=== PATIENT | male | born 1975 | race Caucasian/White ===

== ENCOUNTER 2018-11-25 00:09 | Emergency (ER) | payer OTHER ==
[2018-11-25 00:16] VITALS: TEMP 98.2
--- NOTE | 2018-11-25 00:33 | ED ---
Chest Pain HPI - General Chief Complaint: Chest Pain Stated Complaint: Chest Pain Time Seen by Provider: 11/25/18 00:18 Source: patient Mode of arrival: wheelchair Limitations: no limitations - History of Present Illness MD Complaint: chest pain -: hour(s) Onset: during rest Pain Location: right chest Pain Radiation: back Severity: severe Quality: sharp Consistency: constant Improves With: nothing Worsens With: inspiration Treatments Prior to Arrival: none - Related Data Previous Rx's Medication Instructions Recorded Ibuprofen 800 mg PO TID #20 tablet 11/25/18 Allergies Allergy/AdvReac Type Severity Reaction Status Date / Time No Known Allergies Allergy Verified 11/25/18 00:13 Review of Systems ROS Statement: Those systems with pertinent positive or pertinent negative responses have been documented in the HPI. ROS Other: All systems not noted in ROS Statement are negative. Constitutional: Denies: fever, chills Respiratory: Denies: cough, dyspnea Cardiovascular: Reports: chest pain. Denies: palpitations, orthopnea, edema, syncope Gastrointestinal: Denies: abdominal pain, vomiting, diarrhea Genitourinary: Denies: dysuria, hematuria Musculoskeletal: Denies: back pain Skin: Denies: rash Neurological: Denies: headache EKG Findings - EKG Results: EKG: interpreted by ERMD, sinus rhythm (Rate 63 bpm), normal axis, normal QRS, normal ST/T - Blocks, Krypton, Hypertrophy, ST Abn: Chamber hypertrophy or enlargement: only voltage criteria for left ventricular hypertrophy Past Medical History Past Medical History: No Reported History History of Any Multi-Drug Resistant Organisms: None Reported Past Surgical History: Hernia Repair Past Psychological History: No Psychological Hx Reported Smoking Status: Current every day smoker Past Alcohol Use History: None Reported Past Drug Use History: Heroin General Exam Limitations: no limitations General appearance: alert, in no apparent distress Head exam: Present: atraumatic, normocephalic Eye exam: Present: normal appearance. Absent: scleral icterus, conjunctival injection ENT exam: Present: normal oropharynx Respiratory exam: Present: normal lung sounds bilaterally. Absent: respiratory distress, wheezes, rales, rhonchi, stridor Cardiovascular Exam: Present: regular rate, normal rhythm, normal heart sounds. Absent: systolic murmur, diastolic murmur, rubs, gallop GI/Abdominal exam: Present: soft. Absent: distended, tenderness, guarding, rebound, rigid, mass Extremities exam: Present: normal inspection, normal capillary refill. Absent: pedal edema, calf tenderness Back exam: Present: normal inspection. Absent: CVA tenderness (R), CVA tenderness (L) Neurological exam: Present: alert Skin exam: Present: warm, dry, intact, normal color. Absent: rash Course Vital Signs 11/25/18 00:13 Temperature 98.2 F Pulse Rate 66 Respiratory 18 Rate Blood Pressure 143/83 O2 Sat by Pulse 100 Oximetry Disposition Clinical Impression: Pleuritis Disposition: HOME SELF-CARE Condition: Good Instructions (If sedation given, give patient instructions): Pleurisy (ED) Prescriptions: Ibuprofen 800 mg PO TID #20 tablet Is patient prescribed a controlled substance at d/c from ED?: No Referrals: Mick Sow DO [Primary Care Provider] - 1-2 days
[2018-11-25] MEDS ORDERED: KETOROLAC 30 MG/ML 1 ML VIAL IVP STA (00:38)
[2018-11-25 01:09] LABS: Basophils # (A) 0.1 k/uL (0-0.2); Basophils % (A) 1 %; Eosinophils # (A) 0.2 k/uL (0-0.7); Eosinophils % (A) 2 %; HCT 44.2 % (39.0-53.0); HGB 14.5 gm/dL (13.0-17.5); Lymphocytes # (A) 2.6 k/uL (1.0-4.8); Lymphocytes % (A) 28 %; MCH 28.1 pg (25.0-35.0); MCHC 32.8 g/dL (31.0-37.0); MCV 85.6 fL (80.0-100.0); Mean Platelet Volume 7.2; Monocytes # (A) 0.6 k/uL (0-1.0); Monocytes % (A) 6 %; Neutrophils # (A) 5.6 k/uL (1.3-7.7); Neutrophils % (A) 61 %; Platelet Count 346 k/uL (150-450); RBC 5.16 m/uL (4.30-5.90); RDW 14.8 % (11.5-15.5); WBC 9.2 k/uL (3.8-10.6)
[2018-11-25 01:19] LABS: ALT 20 U/L (21-72); AST 21 U/L (17-59); Albumin 4.5 g/dL (3.5-5.0); Alkaline Phosphatase 69 U/L (38-126); Amylase 42 U/L (30-110); Anion Gap 9 mmol/L; Blood Urea Nitrogen 13 mg/dL (9-20); Calcium 10.2 mg/dL (8.4-10.2); Carbon Dioxide 26 mmol/L (22-30); Chloride 104 mmol/L (98-107); Glucose 85 mg/dL (74-99); Lipase 39 U/L (23-300); Magnesium 2.2 mg/dL (1.6-2.3); Potassium 4.6 mmol/L (3.5-5.1); Sodium 139 mmol/L (137-145); Total Bilirubin 0.5 mg/dL (0.2-1.3); Total Protein 7.7 g/dL (6.3-8.2)
--- NOTE | 2018-11-25 01:19 | CT ---
EXAM: CT Angiography Chest With Intravenous Contrast CLINICAL HISTORY: Pain. TECHNIQUE: Axial computed tomographic angiography images of the chest with intravenous contrast using pulmonary embolism protocol. MIP reconstructed images were created and reviewed. Coronal and sagittal reformatted images were created and reviewed. CTDI is 25.97 mGy and DLP is 328.5 mGy-cm. This CT exam was performed using one or more of the following dose reduction techniques: automated exposure control, adjustment of the mA and/or kV according to patient size, and/or use of iterative reconstruction technique. COMPARISON: No relevant prior studies available. FINDINGS: Pulmonary arteries: Unremarkable. No pulmonary embolism. Aorta: No acute findings. No thoracic aortic aneurysm or dissection. Lungs: Unremarkable. No mass. No consolidation. No pulmonary edema. Pleural space: Unremarkable. No pleural effusion. No pneumothorax. Heart: Unremarkable. No cardiomegaly. No pericardial effusion. No evidence of RV dysfunction. Bones/joints: No acute fracture. No dislocation. Soft tissues: Unremarkable. Lymph nodes: Unremarkable. No enlarged lymph nodes. IMPRESSION: Unremarkable chest CTA. No pulmonary embolism, thoracic aortic aneurysm or dissection.
[2018-11-25 01:24] LABS: D-Dimer 0.21 mg/L FEU (<0.60); INR 0.9 (<1.2); Partial Thromboplastin Time 26.8 sec (22.0-30.0); Prothrombin Time 9.8 sec (9.0-12.0)
[2018-11-25] MEDS ORDERED: HYDROmorphone 1 MG/ML 1 ML SYRINGE IVP STA (01:49)
[2018-11-25 02:42] VITALS: BP 143/86; PULSE 54; RESP 17
== END 2018-11-25 02:42 | disposition home or self-care (01) ==
LOC: EC 00:09
DX: R09.1 Pleurisy (principal); F17.200 Nicotine dependence, unspecified, uncomplicated
CPT/HCPCS: 36415; 93005; 85379; 80053; 82150; 83690; 83735; 84484; 85025; 85610; 85730; 71275; 99284; 96374; 96375; J1885; J1170; Q9967

== ENCOUNTER 2022-01-25 14:41 | Emergency (ER) | payer OTHER ==
[2022-01-25 14:47] VITALS: BP 143/88; PULSE 86; RESP 16; TEMP 98.7
[2022-01-25] MEDS ORDERED: SODIUM CHLORIDE 0.9% 1,000 ML IV STA (16:39)
[2022-01-25] MEDS ORDERED: OFLOXACIN 0.3% OPHTH DROPS 5 ML BOTTLE LEFT EAR STA (16:40)
[2022-01-25] MEDS ORDERED: NYSTATIN 100,000 UNIT/ML SUSP 500,000 UNIT/5 ML CUP PO STA (16:41)
--- NOTE | 2022-01-25 16:48 | ED ---
General Adult HPI - General Chief complaint: Weakness Stated complaint: Procedure done 01/20/swelling in Groin Time Seen by Provider: 01/25/22 16:30 Source: patient, RN notes reviewed Mode of arrival: ambulatory Limitations: no limitations - History of Present Illness Initial comments: This is a pleasant 46-year-old male presents in respiratory complaint generalized weakness. Patient had a procedure done on his left testicle at [facility] on Wednesday. 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 Patient had a procedure to decouple the testicle from the scrotal area. Patient states that this area seems to be healing up okay. There is no discharge. No dehiscence. Sutures are intact. No significant pain. However the patient is complaining of generalized weakness, fatigue, dry mouth with a strange taste in his mouth and left ear pain since the procedure. Patient was sent home on Augmentin. Patient states he believes this was for his ear but might have been for postsurgical prophylaxis as well. No headache, no fever or chills, no changes in vision or hearing, no sore throat or difficulty with speech, no neck pain, no chest pain or shortness of breath, no abdominal pain, no nausea or vomiting, no changes in urination or bowel movements, no numbness or tingling, no extremity pain, no skin rashes or lesions. - Related Data Previous Rx's Medication Instructions Recorded Nystatin 100,000 Unit/ml Susp 5 ml PO QID #200 ml 01/25/22 [Mycostatin Oral Susp] Ofloxacin 0.3% Otic Soln [Floxin 5 drops LEFT EAR BID #5 ml 01/25/22 0.3% Otic Soln] Allergies Allergy/AdvReac Type Severity Reaction Status Date / Time No Known Allergies Allergy Verified 01/25/22 17:43 Review of Systems ROS Statement: Those systems with pertinent positive or pertinent negative responses have been documented in the HPI. ROS Other: All systems not noted in ROS Statement are negative. Past Medical History Past Medical History: No Reported History History of Any Multi-Drug Resistant Organisms: None Reported Past Surgical History: Hernia Repair Past Psychological History: No Psychological Hx Reported Smoking Status: Current every day smoker Past Alcohol Use History: None Reported Past Drug Use History: None Reported General Exam - General Exam Comments Initial Comments: Signs stable, patient afebrile. Patient appears to be adequately hydrated. Cranial nerves II through XII grossly intact Limitations: no limitations General appearance: alert, in no apparent distress Head exam: Present: atraumatic, normocephalic, normal inspection Eye exam: Present: normal appearance, PERRL, EOMI. Absent: scleral icterus, conjunctival injection, periorbital swelling ENT exam: Present: mucous membranes moist, TM's normal bilaterally, normal external ear exam. Absent: normal exam (Patient does have some exudative coating to the tongue. However no evidence of candidiasis. Throat is clear. No tonsillar adenopathy or exudate. No evidence of peritonsillar abscess or deep space infection. No evidence of intraoral cellulitis.) Expanded Ear exam: Present: normal external inspection TM/Canal exam: Canal Discharge: Left TM (White exudative EAC discharge with pain when the external ear is related or there is pressure over the tragus p.m. appears to be normal), Canal Tenderness: Left TM Mouth exam: Present: tongue normal (Coated with a thin layer of white exudate). Absent: drooling, trismus, muffled voice, tongue elevation, laceration Teeth exam: Present: normal inspection. Absent: dental caries, gingival enlargement Throat exam: negative: tonsillar erythema, tonsillomegaly, tonsillar exudate, R peritonsillar mass, L peritonsillar mass Neck exam: Present: normal inspection, full ROM. Absent: tenderness, meningismus, lymphadenopathy Respiratory exam: Present: normal lung sounds bilaterally. Absent: respiratory distress, wheezes, rales, rhonchi, stridor Cardiovascular Exam: Present: regular rate, normal rhythm, normal heart sounds. Absent: systolic murmur, diastolic murmur, rubs, gallop, clicks GI/Abdominal exam: Present: soft, normal bowel sounds. Absent: distended, tenderness, guarding, rebound, rigid exam: Present: circumcision, other (Patient has a surgical incision to the inferior aspect of the left scrotum with sutures intact. There is no evidence of surrounding cellulitis. No dehiscence. No discharge. No significant tenderness. No inguinal adenopathy. Appears to be healing adequately). Absent: testicular tenderness, urethral discharge, scrotal swelling Extremities exam: Present: normal inspection, full ROM, normal capillary refill. Absent: tenderness, pedal edema, joint swelling, calf tenderness Back exam: Present: normal inspection Neurological exam: Present: alert, oriented X3, CN II-XII intact Psychiatric exam: Present: normal affect, normal mood Skin exam: Present: warm, dry, intact, normal color. Absent: rash Course Vital Signs 01/25/22 14:45 Temperature 98.7 F Pulse Rate 86 Respiratory 16 Rate Blood Pressure 143/88 O2 Sat by Pulse 99 Oximetry - Reevaluation(s) Reevaluation #1: 01/25/22 18:09 Medical record is reviewed Symptoms are improved here in the emergency department Patient is informed of results and questions answered Patient in no distress Medical Decision Making - Medical Decision Making Patient presents with generalized weakness, pain to his left ear, abnormal taste in his mouth. Patient had surgery for chronic testicular pain at the [facility] on Wednesday. Patient's been on Augmentin. Patient states that he believes he has an ear infection and he might have thrush. Patient states he previously has had this. Patient has a history of hepatitis C. He denies history of other immunosuppressive diseases. Clinical exam consistent with left external otitis, possible mild thrush. Patient's surgical incision on scrotum. 3 healing well. No evidence of secondary cellulitis or dehiscence. No significant tenderness. No evidence of postsurgical abscess or seroma, no inguinal adenopathy We'll treat with ofloxacin eardrops, nystatin, plan for basic workup, hydration, patient's vital signs are normal. Likely discharge. Note that the patient is refusing any further IV sticks. Patient has scar tissue. There is a history of hepatitis. I was wanting to get an HIV test. Patient states she's had a recent HIV test. I'll go ahead and treat the patient for external otitis and possible early oral thrush. Patient looks hemodiastase stable otherwise. I did advise the patient follow-up with both his urologist and his regular physician as soon as possible. Patient told the RN that he was leaving AGAINST MEDICAL ADVICE. Patient lucid, able make his own medical decisions. Patient left prior to me speaking to him. We'll have the patient continue the Augmentin. I'll tell him to contact his treating physician tomorrow for further guidance. The patient left the ER prior to me having a chance to speak with him. Supervising physician, Dr. Callahan Disposition Clinical Impression: External otitis of left ear, Oral candidiasis Disposition: Left Against Medical Advice Additional Instructions: Patient left the emergency department prior to me having a chance to speak with him., Patient left AGAINST MEDICAL ADVICE. I did send prescriptions for ofloxacin otic and nystatin suspension Prescriptions: Ofloxacin 0.3% Otic Soln [Floxin 0.3% Otic Soln] 5 drops LEFT EAR BID #5 ml Nystatin 100,000 Unit/ml Susp [Mycostatin Oral Susp] 5 ml PO QID #200 ml Referrals: Mick Sow DO [Primary Care Provider] - 1-2 days Time of Disposition: 18:14
== END 2022-01-25 18:28 | disposition left against medical advice (07) ==
LOC: EC 14:41
DX: H60.92 Unspecified otitis externa, left ear (principal); B37.0 Candidal stomatitis; F17.200 Nicotine dependence, unspecified, uncomplicated
CPT/HCPCS: 99284